=== PATIENT | female | born 1995 | race Caucasian/White ===

== ENCOUNTER 2018-11-09 14:40 | Emergency (ER) | payer MEDICAID ==
[~2018-11-09] VITALS: Ht 165.1 cm; Wt 69.9 kg
[2018-11-09 16:50] VITALS: BP 122/74
== END 2018-11-09 18:21 | disposition home or self-care (01) ==
LOC: ER 14:40
DX: J02.9 Acute pharyngitis, unspecified (principal); H92.01 Otalgia, right ear; Z98.890 Other specified postprocedural states
CPT/HCPCS: 81025; 99283